=== PATIENT | male | born 1980 | race African-American/Black ===

== ENCOUNTER 2023-05-23 02:32 | Emergency (ER) | payer SELFPAY ==
[~2023-05-23] VITALS: Ht 172 cm; Wt 74.8 kg
[2023-05-23] MEDS ORDERED: GABAPENTIN 300 MG CAPSULE PO STA (03:45)
--- NOTE | 2023-05-23 03:49 | ED General ---
General Chief Complaint: Upper Extremity Stated Complaint: LEFT ARM NERVE PX Nursing Triage Note: PATIENT REPORTED LEFT SHOULDR PAIN, LEFT FIRST AND SECOND FINGER NUMB FOR LAST THREE DAYS. TREATED WITH TYLENOL WITH NO RELIEF. Source of Information: Patient Exam Limitations: No Limitations History of Present Illness Date Seen by Provider: May 23, 2023 Time Seen by Provider: 03:28 Allergies and Home Medications Allergies Coded Allergies: No Known Drug Allergies (Unverified , 05/23/23) Patient Home Medication List Prednisone (Prednisone) 20 Mg Tab, 40 MG PO DAILY Prescribed by: RUTHIE BLANCHARD on 05/23/23 0354 Physical Exam Vital Signs Vital Signs - First Documented 05/23/23 02:43 Temp 36.5 Pulse 95 Resp 14 B/P (MAP) 122/76 (91) Pulse Ox 94 O2 Delivery Room Air Capillary Refill : Less Than 3 Seconds Height, Weight, BMI Height: '" Weight: lbs. oz. kg; 25.00 BMI Method: Progress/Results/Core Measures Suspected Sepsis SIRS Temperature: Pulse: 95 Respiratory Rate: 14 Blood Pressure 122 /76 Mean: 91 Results/Orders My Orders Orders - RUTHIE SMITH MD Gabapentin Capsule (Gabapentin Capsule) (05/23/23 03:45) Prednisone Tablet (Deltasone Tablet) (05/23/23 04:00) Medications Given in ED Current Medications Medications Dose Ordered Sig/Felicia Route Start Time Stop Time Status Last Admin Dose Admin Prednisone 40 mg ONCE ONCE PO 05/23/23 04:00 05/23/23 04:01 DC 05/23/23 04:05 40 MG Vital Signs/I&O 05/23/23 02:43 Temp 36.5 Pulse 95 Resp 14 B/P (MAP) 122/76 (91) Pulse Ox 94 O2 Delivery Room Air Capillary Refill : Less Than 3 Seconds Blood Pressure Mean: 91 Departure Impression Primary Impression: Paresthesia of left arm Disposition: 01 HOME, SELF-CARE Condition: Stable Departure-Patient Inst. Decision time for Depature: 03:48 Referrals: NO,LOCAL PHYSICIAN (PCP/Family) Primary Care Physician Patient Instructions: Paresthesia (DC) Add. Discharge Instructions: You may take Tylenol (acetaminophen) up to 1000 mg every 6 hours as needed for pain. Take prednisone as prescribed. Take with food or milk to avoid stomach upset and take early in the day to avoid sleep disturbance. Established with a primary care provider and follow-up in the next 1 to 2 weeks. You may need further work-up if your symptoms do not resolve with the prednisone therapy. Such work-up might include imaging of your neck such as MRI or further therapies like physical therapy. Return to care if you have worsening symptoms, especially if you develop loss of control or paralysis of any of your extremities. Avoid strenuous activities that put unnecessary strain on your neck. All discharge instructions reviewed with patient and/or family. Voiced understanding. Scripts Prednisone (Prednisone) 20 Mg Tab 40 MG PO DAILY, #6 TAB 0 Refills Prov: RUTHIE SMITH MD 05/23/23 RUTHIE SMITH MD May 23, 2023 03:48
[2023-05-23] MEDS ORDERED: PRD20T PO (03:54)
[2023-05-23] MEDS ORDERED: predniSONE 20 MG TABLET PO ONE (04:00)
[2023-05-23 04:10] VITALS: BP 110/76
== END 2023-05-23 04:16 | disposition home or self-care (01) ==
LOC: EDUNIT# 02:32 → ER 02:36
DX: R20.2 Paresthesia of skin (principal); Z28.310 Unvaccinated for COVID-19
CPT/HCPCS: 99283